=== PATIENT | male | born 2000 | race Hispanic/Latino ===

== ENCOUNTER 2021-08-25 10:50 | Emergency (ER) | payer OTHER, SELFPAY ==
[~2021-08-25] VITALS: Ht 170.2 cm; Wt 77.3 kg
[2021-08-25] MEDS ORDERED: ONDANSETRON 4MG ORAL DISINTEGRATING TAB PO ONE (11:55)
[2021-08-25] MEDS ORDERED: ACETAMINOPHEN 500 MG TAB PO ONE (11:55)
[2021-08-25] MEDS ORDERED: ONDA4TAB6 PO ×2 (12:42→12:51)
[2021-08-25] MEDS ORDERED: IBUP-1022 PO ×2 (12:42→12:51)
[2021-08-25 12:58] VITALS: BP 133/86
== END 2021-08-25 13:00 | disposition home or self-care (01) ==
LOC: M ED 10:50
DX: S09.90XA Unspecified injury of head, initial encounter (principal); W22.8XXA Striking against or struck by other objects, initial encounter; Y92.9 Unspecified place or not applicable; Y93.9 Activity, unspecified; Y99.0 Civilian activity done for income or pay

== ENCOUNTER 2021-08-26 14:23 | Emergency (ER) | payer OTHER, SELFPAY ==
[~2021-08-26] VITALS: Ht 170.2 cm; Wt 77.3 kg
[~2021-08-26 14:23] MED LIST: IBUP-1022 PO; ONDA4TAB6 PO
[2021-08-26] MEDS ORDERED: ACETAMINOPHEN TAB 650MG DOSE (2X325MG) PO ONE (15:15)
[2021-08-26 16:04] VITALS: BP 139/79
== END 2021-08-26 16:16 | disposition home or self-care (01) ==
LOC: M ED 14:23
DX: S06.0X0A Concussion without loss of consciousness, initial encounter (principal); W22.8XXA Striking against or struck by other objects, initial encounter; F17.200 Nicotine dependence, unspecified, uncomplicated; Y92.9 Unspecified place or not applicable; Y93.9 Activity, unspecified; Y99.1 Military activity